=== PATIENT | female | born 1985 | race Caucasian/White ===

== ENCOUNTER 2019-02-28 21:05 | Inpatient (IN) | payer BC ==
[2019-02-28 21:50] VITALS: BMI 27.1
[2019-02-28] MEDS ORDERED: NS / Oxytocin 40 units/1000ml 1,000 ML IV PRN ×2 (22:43→22:47)
[2019-02-28] MEDS ORDERED: Diphenoxylate HCl/Atropine Tablet PO PRN ×2 (22:43)
[2019-02-28] MEDS ORDERED: Ibuprofen 800 MG TAB PO PRN (22:43)
[2019-02-28] MEDS ORDERED: HYDROcodone/Acetaminophen 5/325 mg Tablet PO PRN ×2 (22:43)
[2019-02-28] MEDS ORDERED: Lactated Ringer's 1,000 ML IV PRN (22:43)
[2019-02-28] MEDS ORDERED: Methylergonovine 0.2 MG/ML VIAL IM PRN (22:43)
[2019-02-28] MEDS ORDERED: Promethazine HCl 25 MG/ML VIAL IM PRN ×2 (22:43→22:47)
[2019-02-28] MEDS ORDERED: Lidocaine 1% (PF) 30 ML VIAL SC PRN ×2 (22:43→22:47)
[2019-02-28] MEDS ORDERED: Ondansetron PF 4 MG/2 ML Vial IVP PRN ×2 (22:43→22:47)
[2019-02-28] MEDS ORDERED: Carboprost 250 MCG/ML AMP IM PRN (22:43)
[2019-02-28 22:59] LABS: Hemoglobin 12.6 g/dL (12.0-16.0); Mean Corpuscular HGB CONC 34.1 g/dL (32.0-36.0); Mean Corpuscular Hemoglobin 31.7 pg (27.0-31.0); Platelet Count 278 thou/uL (130-400); RBC Distribution Width 10.7 % (11.5-14.5); Red Blood Cell (RBC) Count 3.99 mill/uL (4.20-5.40); White Blood Cell (WBC) Count 14.6 thou/uL (4.8-10.8)
--- NOTE | 2019-02-28 23:14 | PDOC.LDHP ---
Labor and Delivery H&P Chief complaint: contractions HPI: Patient is here for contractions. When she left her house they slowed down some and were less strong. The baby is moving normally. Current gestational age (weeks): 39 Due date: 03/02/18 Dating criteria: first trimester ultrasound Grav: 4 Para: 1 OB History Details: SAB SAB OB Hx significant for shortened cervical length at 18weeks, on prometrium, delivered at term Current complications: other (Cervical length less than 2.5 cm at 20 weeks.) Allergies/Adverse Reactions: Allergies Allergy/AdvReac Type Severity Reaction Status Date / Time clindamycin [From Cleocin] Allergy Mild Hives Verified 02/28/19 21:45 Social history: none - Physical Exam Vital signs reviewed and normal: yes General: breathing through contractions Lungs: nonlabored breathing Abdomen: gravid Extremeties: no edema FHT: category 1 - Vaginal Exam cm dilated: 5 Effacement: 90% Station: 0 - OB Labs Blood type: O RH: negative Antibody Screen: negative HIV: negative RPR: negative HEPSAg: negative 1 hour GCT: negative GBS: negative Urine drug screen: negative Rubella: immune - Assessment L&D Assessment: term patient in labor - Plan Plan: admit to L&D -: AROM, clear fluid Anticipate
--- NOTE | 2019-02-28 23:16 | PDOC.OPDEL ---
OB Operative/Delivery Note Delivery Dr/Surgeon: Hernandez galindo CNM Pre-Delivery Diagnosis: active labor Procedure/Post Delivery Dx: spontaneous vaginal delivery Weeks gestation: 39 Anesthesia: none - Findings A Sex: female Weight: 7 lb 11 oz - 1 min: 8 - 5 min: 9 - Additional Findings/Plan Repaired Obstetrical Laceration: none Estimated blood loss: 250mL see nurse notes for QBL Post delivery plan: routine recovery
[2019-02-28 23:29] LABS: Syphilis Antibody Nonreactive (Nonreactive); Syphilis Antibody Index 0.03 S/CO (<1.00 Non-Reactive)
[2019-02-28 23:30] LABS: HBSAg Index 0.33 S/CO (0-0.99); Hep B Surf Ag Non-Reactive S/CO (NonReactive)
[2019-03-01] MEDS ORDERED: Milk Of Magnesia 30 ML UDCUP PO PRN (01:41)
[2019-03-01] MEDS ORDERED: Bisacodyl 10 MG SUPP PR PRN (01:41)
[2019-03-01] MEDS ORDERED: HYDROcodone/Acetaminophen 5/325 mg Tablet PO PRN ×2 (01:41)
[2019-03-01] MEDS ORDERED: NS / Oxytocin 40 units/1000ml 1,000 ML IV SCH (01:41)
[2019-03-01] MEDS ORDERED: Benzocaine-Menthol 82.5 ML CAN TOP PRN (01:41)
[2019-03-01] MEDS ORDERED: Methylergonovine 0.2 MG/ML VIAL IM PRN (01:41)
[2019-03-01] MEDS: Ferrous Sulfate 325 MG TAB PO SCH ×2 (10:33→16:57)
[2019-03-01] MEDS: Ibuprofen 800 MG TAB PO SCH ×3 (10:35→21:12)
[2019-03-01] MEDS: Prenatal Vitamin 1 TAB PO SCH (10:35)
[2019-03-01] MEDS: Docusate Calcium (SURFAK) 240 MG CAP PO SCH ×2 (10:35→21:12)
--- NOTE | 2019-03-01 21:32 | PDOC.PP ---
Post Progress Note Post Day #: 1 Subjective: Pt is doing well. infant is like a champ. she would like to discharge as soon as possible tomorrow. having after birht pains, but they have diminished now. PO intake tolerated: yes Flatus: yes Ambulation: yes Vital Signs (12 hours) Temp Pulse Resp BP Pulse Ox 03/01/19 20:00 98.0 F 86 18 109/68 98 03/01/19 11:15 100 Weight Weight 163 lb - Physical Examination General: NAD Cardiovascular: no m/r/g, RRR Respiratory: non-labored breathing Abdominal: lochia (minimal) Fundus firm & at: -1 Extremities: negative homans (B) Skin: no rash Neurological: no gross focal deficits Psychiatric: A&Ox3, normal affect Result Diagrams: 02/28/19 22:43 Additional Labs: Post Labs Blood Type O NEGATIVE 02/28/19 22:43 Hep Bs Antigen Non-Reactive S/CO (NonReactive) 02/28/19 22:43 (1) Rh negative status during Code(s): O09.899 - SUPERVISION OF OTHER HIGH RISK PREGNANCIES, UNSP TRIMESTER Status: Acute (2) (spontaneous vaginal delivery) Code(s): O80 - ENCOUNTER FOR FULL-TERM UNCOMPLICATED DELIVERY Status: Acute - Assessment/Plan A: G4 now P2 sp 1 degree not repaired. NML PPD1 exam. routine care. discharge home tomorrow
[2019-03-02] MEDS: Ibuprofen 800 MG TAB PO SCH (05:28)
[2019-03-02] MEDS: Docusate Calcium (SURFAK) 240 MG CAP PO SCH (09:02)
[2019-03-02] MEDS: Ferrous Sulfate 325 MG TAB PO SCH (09:02)
[2019-03-02] MEDS: Prenatal Vitamin 1 TAB PO SCH (09:02)
[2019-03-02 09:05] VITALS: BP 100/65; TEMP 98.2
== END 2019-03-02 10:10 | disposition home or self-care (01) | DRG 807 ==
LOC: L&D/OP 21:05 → L&D 23:14 → L&D-LIB 03-01 06:11 → 3SW 03-01 11:21
PROVIDERS: ADMIT Obstetrics & Gynecology; ATTEND Obstetrics & Gynecology
PROC: 10E0XZZ Delivery of Products of Conception, External Approach (ICD-10-PCS; principal; 2019-02-28)
PROC: 10907ZC Drainage of Amniotic Fluid, Therapeutic from Products of Conception, Via Natural or Artificial Opening (ICD-10-PCS; 2019-02-28)
PROC: 30233N1 Transfusion of Nonautologous Red Blood Cells into Peripheral Vein, Percutaneous Approach (ICD-10-PCS; 2019-03-01)
DX: O70.0 First degree perineal laceration during delivery (principal); Z37.0 Single live birth; Z3A.39 39 weeks gestation of pregnancy; Z88.1 Allergy status to other antibiotic agents
CPT/HCPCS: 36415; 85461; 86780; 86850; 86870; 86900; 86901; 87340; 90384; 96372; 99285

== ENCOUNTER 2020-02-11 09:57 | Day surgery (SDC) | payer BC, OTHER ==
[2020-02-10 10:16] VITALS: BMI 24.6
[2020-02-10 11:41] LABS: Hemoglobin 13.6 g/dL (12.0-16.0); Mean Corpuscular HGB CONC 32.5 g/dL (32.0-36.0); Mean Corpuscular Hemoglobin 31.4 pg (27.0-31.0); Mean Corpuscular Volume 96.6 fL (78.0-98.0); Mean Platelet Volume 10.7 fL (7.4-10.4); Platelet Count 217 thou/uL (130-400); Red Blood Cell (RBC) Count 4.34 mill/uL (4.20-5.40)
[2020-02-10 12:07] LABS: BHCG - Serum POSITIVE (NEGATIVE); Pregs Control Background? CLEAR/WHITE (CLR/WHITE); Pregs Control Bar Appear? YES (CONTROL BAR)
[2020-02-10 17:45] LABS: SARS-CoV-2 MS2 Positive; SARS-CoV-2 N Gene Negative; SARS-CoV-2 S Gene Negative; SARS-CoV-2 orf1ab Negative
[2020-02-11] MEDS ORDERED: Fentanyl 100 MCG/2 ML VIAL ONE (11:45)
[2020-02-11] MEDS ORDERED: CeleCOXIB 100 MG CAP ONE (12:08)
[2020-02-11] MEDS ORDERED: Gabapentin 300 MG CAP ONE ×2 (12:08)
[2020-02-11] MEDS ORDERED: Tranexamic Acid 1,000 MG/10 ML VIAL ONE (12:50)
[2020-02-11] MEDS ORDERED: Misoprostol 200 MCG TAB ONE (12:51)
[2020-02-11] MEDS ORDERED: Lidocaine 1% PF 5 ML VIAL ONE (13:01)
[2020-02-11] MEDS ORDERED: PROPOFOL 200 MG/20 ML VIAL ONE (13:01)
[2020-02-11] MEDS ORDERED: EPHEDRINE 25 MG/5 ML SYRINGE ONE (13:01)
[2020-02-11] MEDS ORDERED: Ondansetron PF 4 MG/2 ML Vial ONE (13:01)
[2020-02-11] MEDS ORDERED: Methylergonovine 0.2 MG/ML VIAL ONE (13:15)
--- NOTE | 2020-02-18 14:44 | OP ---
DATE OF PROCEDURE: 02/11/2020 PREOPERATIVE DIAGNOSIS: Missed at 12 weeks of mono-di twins. POSTOPERATIVE DIAGNOSIS: Missed at 12 weeks of mono-di twins. PROCEDURE PERFORMED: Suction dilation and curettage. ANESTHESIA: General endotracheal. SNOW RANGER SURGEON: None. ESTIMATED BLOOD LOSS: 400 mL. IVF: 600 mL of crystalloid. URINE OUTPUT: 100 mL of clear urine at the beginning. PATHOLOGY: Products of conception. COMPLICATIONS: None. DRAINS: None. FINDINGS: Large amount of products of conception. A 12-week size uterus on bimanual exam. Initially, a slow ooze from the cervix after suction and sharp curette that was treated with bimanual massage, TXA, Cytotec and Methergine. Concluding the procedure, a gritty texture was noted to all uterine hill and there was minimal active bleeding from the cervix. The tenaculum was actively bleeding at the conclusion, that was not suppressed with pressure with a ring forceps and was hemostatic with a 2-0 Vicryl suture. DESCRIPTION OF PROCEDURE: The patient was taken to the operating room, where general anesthesia was obtained without difficulty. The patient was prepped and draped in a sterile fashion in the dorsal lithotomy position. A speculum was placed in the vagina. The anterior lip of the cervix was grasped with a single-tooth tenaculum. The cervix was then progressively dilated with Minor dilators to the maximum and a 12 mm suction curette was assembled and a maximum pressure was achieved at 55 mmHg. The suction curette was then passed into the uterus and pressure was placed, and products of conception were removed using a circular motion to the suction curette for several passes. A sharp curettage was then taken to the uterine hill once no further products were removed, noting some active bleeding. This was performed for several passes and products of conception were sent for final pathology. The TXA and Cytotec as well as Methergine were called for and continued sharp curette was performed, followed by the suction curette, removing the additional clot and products out of the uterus to decompress it. Bimanual massage was then performed to the uterus and the uterus was noted to firm up. Sharp curette was then again taken to the uterus and a gritty texture was noted. There was no further passage of the products and the bleeding had subsided greatly. At that point, the suction curette was passed for additional pass to remove any additional products or clot out of the uterus and all instruments removed out of the uterus. Bimanual massage was then performed. The cervix was then observed and there was minimal active bleeding from the cervix, which was appropriate. The tenaculum was removed off the cervix. There was bleeding from one of the tenaculum sites that was grasped with a ring forceps and allowed to compress that area for several minutes. However, after removal, it still continued to actively bleed and therefore a 2-0 Vicryl was used to stitch this area in a [id number] fashion, noting excellent hemostasis. All instruments were removed out of the vagina. The patient tolerated the procedure well. Sponge, lap, and needle counts correct x2. The patient was taken to recovery room in stable condition. The patient received doxycycline prior to the procedure. Job ID: [id number]
== END 2020-02-11 15:39 | disposition home or self-care (01) ==
LOC: SDC 09:57
PROVIDERS: ATTEND Student in an Organized Health Care Education/Training Program
PROC: 10D18ZZ Extraction of Products of Conception, Retained, Via Natural or Artificial Opening Endoscopic (ICD-10-PCS; principal; 2020-02-11)
DX: O02.1 Missed abortion (principal); Z79.82 Long term (current) use of aspirin; Z88.1 Allergy status to other antibiotic agents
CPT/HCPCS: 84703; 85027; 86850; 86900; 86901; 87635; 88305; 90384; 96372; J0690; J2001; J2210; J2405; J2704; J3010; U0003